=== PATIENT | male | born 1965 | race Caucasian/White ===

== ENCOUNTER 2016-12-21 23:24 | Emergency (ER) | payer MEDICARE ==
[2016-12-21 23:21] LABS: BASOPHILS 0.4 %; BASOPHILS ABSOLUTE 0.03 10/3/uL (0.0-0.16); EOSINOPHILS 2.3 %; EOSINOPHILS ABSOLUTE 0.17 10/3/uL (0.0-0.53); ER CBC TAT 0 Hrs 03 Mins; IMMATURE GRANULOCYTES 0.6 %; IMMATURE GRANULOCYTES ABSOLUTE 0.04 10/3/uL (0.0-0.11); LYMPHOCYTES 31.6 %; LYMPHOCYTES ABSOLUTE 2.29 10/3/uL (0.67-4.30); MEAN PLATELET VOLUME 9.3 fL (9.2-13.0); MONOCYTES 13.4 %; MONOCYTES ABSOLUTE 0.97 10/3/uL (0.21-1.20); NEUTROPHILS 51.7 %; NEUTROPHILS ABSOLUTE 3.75 10/3/uL (2.02-8.40); PLATELET COUNT 121 10/3/uL (150-400); RBC DISTRIBUTION WIDTH 15.3 % (12.0-16.0); RED CELL COUNT 4.77 10/6/uL (4.7-6.1); WHITE BLOOD CELLS 7.3 10/3/uL (4.5-10.5)
[~2016-12-21 23:24] MED LIST: ALTA2.5 PO; ASAB PO; ATV1 PO; B1100 PO; B150 PO; BUSPAR5 PO; BYSTOLIC10 MG PO; CARD60 PO; CIP5 PO; CLARIT10 PO; CORDARONE PO; COREG12 PO; COREG25 PO; COREG6 PO; DIOVAN HCT320 MG/25 PO; ELIQUIS 5 MG TAB5 MG PO; FISH-EPA1000 MG PO; FOLIC PO; HABIT21 TOP; HALF81 PO; HCTZ12.5 PO; HYDROCHLOROT12.5 MG PO; K500 PO; KDUR20 PO; KLOR-CON M2020 MEQ PO; L20 PO; L25 PO; LIDODERM T; LIPITOR40 PO; LOP25 PO; LORTAB 5 PO; MAGOX4 PO; METHOC500B PO; MULTIVITAMI1; NAP500 PO; NICODERM C21 MG/241 TOP; OXYCOD PO; P20 PO; PEP20 PO; PERCOCET1 TA4 PO; PRADAXA150 MG PO; PRILOSEC OTC20 MG PO; PRIN20 PO; PRIN5 PO; PROAIR HFA INH; REVATIO20 PO; SPIRO25 PO; STERAPRED DS10 MG; SYMBICORT 160/41 INH INH; SYMBICORT 80/4.1 INH INH; SYMBICORT INH; SYMBICORT PO; TOPXL25 PO; ULTRAM50 PO; V5 PO; XARELTO20 MG PO; Z-PAC PO; ZESTRIL20 MG PO
[2016-12-21 23:31] LABS: PARTIAL THROMBO TIME 30.4 SEC (22.5-37.2)
[2016-12-21 23:32] LABS: PROTIME (NOT ORD) 13.4 SEC (12.0-14.5)
[2016-12-21 23:55] LABS: MEAN CORPUS HGB CONC 33.3 g/dL (32.0-36.0); MEAN CORPUSCULAR HEMOGLOB 31.7 pg (26.0-34.0); MEAN CORPUSCULAR VOLUME 95 fL (80-100)
[2016-12-21 23:56] LABS: HEMATOCRIT 45.3 % (40.0-51.0); HEMOGLOBIN 15.1 g/dL (13.6-17.8); MANUAL DIFF NO %
[2016-12-22 00:42] LABS: ALCOHOL 143 MG/DL (0); CALCIUM, SERUM 8.3 MG/DL (8.5-10.4); CHEST PAIN PROFILE TAT 0 Hrs 20 Mins; GFR AFRICAN AMERICAN 145 ML/MIN (>=60); GFR NON AFRICAN AMERICAN 125 ML/MIN (>=60); GLUCOSE, SERUM 88 MG/DL (60-99); POTASSIUM, SERUM 3.9 MMOL/L (3.5-5.3); TROPONIN I 0.04 NG/ML (<0.05)
[2016-12-22 00:44] LABS: BUN (BLOOD UREA NITROGEN) 5 MG/DL (6-23); CHLORIDE, SERUM 91 MMOL/L (96-112); CO2 (CARBON DIOXIDE) 26 MMOL/L (24-34); SODIUM, SERUM 125 MMOL/L (135-148)
[2017-01-30] MEDS ORDERED: ASAB PO (22:23)
[2017-01-30] MEDS ORDERED: PACERONE100 MG PO (22:23)
[2017-01-30] MEDS ORDERED: LIPITOR40 PO (22:24)
[2017-01-30] MEDS ORDERED: COREG12 PO (22:25)
[2017-01-30] MEDS ORDERED: L25 PO (22:25)
[2017-01-30] MEDS ORDERED: L20 PO (22:26)
[2017-01-30] MEDS ORDERED: REVATIO20 PO (22:26)
[2017-01-30] MEDS ORDERED: PRIN20 PO (22:26)
[2017-01-30] MEDS ORDERED: KLOR-CON M2020 MEQ PO (22:26)
[2017-01-30] MEDS ORDERED: VENTOLIN HFA INH (22:27)
[2017-01-30] MEDS ORDERED: SYMBICORT 160/41 INH INH (22:27)
[2017-02-01] MEDS ORDERED: COREG25 PO (17:59)
[2017-02-01] MEDS ORDERED: ELIQUIS 5 MG TAB5 MG PO (18:06)
== END 2016-12-22 03:00 | disposition home or self-care (01) ==
LOC: ER 23:24
PROVIDERS: Emergency Medicine
DX: F10.129 Alcohol abuse with intoxication, unspecified (principal); R80.9 Proteinuria, unspecified; R07.9 Chest pain, unspecified; J44.9 Chronic obstructive pulmonary disease, unspecified; I10 Essential (primary) hypertension; I48.91 Unspecified atrial fibrillation; Z72.0 Tobacco use
CPT/HCPCS: 71010; 80048; 83735; 84484; 85025; 85610; 85730; 93005; 94640; 96365; 96366; 96375; 99284; G0480; J2930; J3411